=== PATIENT | male | born 1970 | race Caucasian/White ===

== ENCOUNTER 2019-08-04 09:22 | Inpatient (IN) ==
[2019-08-04] MEDS ORDERED: TYLENOL PO PRN (11:39)
[2019-08-04] MEDS ORDERED: ZOFRAN ODT PO PRN (11:39)
[2019-08-04] MEDS ORDERED: BENTYL PO PRN (11:39)
[2019-08-04] MEDS ORDERED: MAALOX PLUS LIQUID PO PRN (11:39)
[2019-08-04] MEDS ORDERED: SALINE LOCK IV FLUID XX ONE (11:39)
[2019-08-04] MEDS ORDERED: SEROQUEL PO PRN (11:39)
[2019-08-04] MEDS ORDERED: DESYREL PO PRN (11:39)
[2019-08-04] MEDS ORDERED: DULCOLAX PR PRN (11:39)
[2019-08-04] MEDS ORDERED: D5W 1,000 ML IV PRN (11:39)
[2019-08-04] MEDS ORDERED: ZOFRAN IV PRN (11:39)
[2019-08-04] MEDS ORDERED: PHENOBARBITAL IV PRN (11:39)
[2019-08-04] MEDS ORDERED: TUBERSOL ID ONE (11:39)
[2019-08-04] MEDS ORDERED: IMODIUM PO PRN (11:39)
[2019-08-04] MEDS ORDERED: ROBAXIN PO PRN (11:39)
[2019-08-04] MEDS ORDERED: SENOKOT PO PRN (11:39)
[2019-08-04 12:23] LABS: URINE SOURCE VOIDED
[2019-08-04] MEDS: NICODERM PATCH TD PRN (12:38)
[2019-08-04] MEDS: LIBRIUM PO SCH ×2 (12:38→18:55)
[2019-08-04 12:45] LABS: AMYLASE 54 U/L (20-200); LIPASE 27 U/L (13-60)
[2019-08-04 12:56] LABS: HEMATOCRIT 43.3 % (42.0-52.0); HEMOGLOBIN 15.3 g/dL (14.0-18.0); MCH 33.5 PG (27-31); MCHC 35.3 g/dL (33-37); MCV 94.7 FL (81-99); MPV 10.1 FL (7.4-10.4); RBC 4.57 XMIL (4.7-6.1); RDW 12.2 % (11.5-14.5); WBC 10.2 X1000 (4.8-10.8)
[2019-08-04 12:57] LABS: UR AMPHETAMINES QUAL NONE DETECTED (NONE DETECT); UR BARBITUATES QUAL NONE DETECTED (NONE DETECT); UR BENZODIAZEPIN QUAL PRESUMPTIVE POSITIVE (NONE DETECT); UR CANNABINOIDS QUAL NONE DETECTED (NONE DETECT); UR COCAINE QUAL NONE DETECTED (NONE DETECT); UR METHADONE QUAL NONE DETECTED (NONE DETECT); UR METHAMPHETAMINE QUAL NONE DETECTED (NONE DETECT); UR OPIATES QUAL NONE DETECTED (NONE DETECT); UR OXYCODONE QUAL PRESUMPTIVE POSITIVE (NONE DETECT); UR PCP QUAL NONE DETECTED (NONE DETECT); UR PROPOXYPHENE QUAL NONE DETECTED (NONE DETECT); UR TCA QUAL NONE DETECTED (NONE DETECT)
[2019-08-04] MEDS ORDERED: M.V.I.-12 10 ML, FOLIC ACID 1 MG, MAGNESIUM SULFATE 1 GM, THIAMINE 100 MG in NS 1,000 ML IV ONE (13:00)
[2019-08-04 13:07] LABS: BILIRUBIN URINE NEGATIVE (NEGATIVE); BLOOD URINE TRACE (NEGATIVE); CLARITY SL. CLOUDY (CLEAR); COLOR YELLOW; GLUCOSE URINE NEGATIVE (NEGATIVE); KETONE URINE TRACE mg/dL (NEGATIVE); LEUKOCYTES URINE TRACE (NEGATIVE); NITRITE URINE NEGATIVE (NEGATIVE); PROTEIN URINE TRACE mg/dL (NEGATIVE); UROBILINOGEN URINE 4 mg/dL
[2019-08-04 13:08] LABS: AGAP 15; ALBUMIN 4.8 g/dL (3.5-5.0); ALKALINE PHOSPHATASE 69 U/L (32-122); BUN 12 mg/dL (8-22); CALCIUM 10.1 mg/dL (8.8-10.2); CHLORIDE 92 mmol/L (98-107); COSMO 275; CREATININE 1.1 mg/dL (0.7-1.2); ESTIMATED GFR > 60; GLUCOSE 131 mg/dL (70-104); GOT 61 U/L (10-34); GPT 52 U/L (10-44); POTASSIUM 3.4 mmol/L (3.5-5.1); SODIUM 137 mmol/L (136-145); TCO2 30 mmol/L (25-35); TOTAL PROTEIN 7.7 g/dL (6.3-8.3)
[2019-08-04 13:13] LABS: URINE BACTERIA 1+ /HFP; URINE CRYSTAL CA OXALATE PRESENT /HPF; URINE EPITHELIAL CELLS <10 /HPF (<10); URINE RBC <10 /HPF (<10)
[2019-08-04 13:33] LABS: INR 0.91; PROTIME 12.7 Seconds (11.0-16.0)
[2019-08-04] MEDS: ATARAX PO PRN (20:13)
[2019-08-04] MEDS: MOTRIN PO PRN (20:13)
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
[2019-08-05] MEDS: LIBRIUM PO SCH ×5 (01:04→23:43)
[2019-08-05] MEDS: PROTONIX PO SCH (06:25)
[2019-08-05] MEDS: THERA M PLUS PO SCH (09:51)
[2019-08-05] MEDS: VITAMIN B-1 PO SCH (09:51)
[2019-08-05] MEDS: FOLIC ACID PO SCH (09:51)
[2019-08-05] MEDS: NICODERM PATCH TD PRN (17:22)
[2019-08-05] MEDS: MOTRIN PO PRN (20:06)
[2019-08-05] MEDS: ATARAX PO PRN (20:13)
--- NOTE | 2019-08-05 20:19 | PROGRESS NOTE ---
DATE: 08/05/2019 SUBJECTIVE: Patient states that he is very sleepy, tired. Denies any fevers or chills. States overall he is feeling better. PHYSICAL EXAMINATION: Vital Signs: Reviewed. He is awake, alert currently. Temperature 97.5 degrees, pulse 69, respiratory rate 18, BP 111/65. General: Patient is in no current respiratory distress. HEENT: Normocephalic. Neck: Supple. Cardiovascular: Regular rate. Chest: Clear, nonlabored. Abdomen: Soft, nondistended. Extremities: Moves all extremities. Neurologic: No changes. ASSESSMENT: 1. Nausea and vomiting. 2. Abdominal pain. 3. Myalgias. 4. Tremors. 5. Paresthesias. 6. Paroxysmal sweating. PLAN: We are going to continue patient in the hospital. We are going to rapidly decrease his Librium. Instead of 50 q.6 hours a day, we are going to switch to 25 q.6, and we will follow. Discussed with patient that should his withdrawal symptoms worsen, he needs to let us know, and we will increase. cc: León Rodriges MD
[2019-08-06] MEDS: PROTONIX PO SCH ×2 (05:40→06:06)
[2019-08-06] MEDS: LIBRIUM PO SCH ×2 (05:40→12:29)
[2019-08-06 08:39] VITALS: BP 127/90
[2019-08-06] MEDS: FOLIC ACID PO SCH (08:40)
[2019-08-06] MEDS: VITAMIN B-1 PO SCH (08:40)
[2019-08-06] MEDS: THERA M PLUS PO SCH (08:40)
[2019-08-06] MEDS ORDERED: REVIA PO ONE (08:45)
[2019-08-06] MEDS ORDERED: VIVITROL IM ONE (14:00)
== END 2019-08-06 14:30 | disposition home or self-care (01) | DRG 897 ==
LOC: P.DIRADM 09:22 → P.MEDSURG 09:53
PROVIDERS: ADMIT Family Medicine; ATTEND Family Medicine

== ENCOUNTER 2019-10-22 09:40 | Inpatient (IN) ==
[2019-10-22] MEDS ORDERED: SENOKOT PO PRN (13:11)
[2019-10-22] MEDS ORDERED: ROBAXIN PO PRN (13:11)
[2019-10-22] MEDS ORDERED: MOTRIN PO PRN (13:11)
[2019-10-22] MEDS ORDERED: ATARAX PO PRN (13:11)
[2019-10-22] MEDS ORDERED: SALINE LOCK IV FLUID XX ONE (13:11)
[2019-10-22] MEDS ORDERED: D5W 1,000 ML IV PRN (13:11)
[2019-10-22] MEDS ORDERED: DULCOLAX PR PRN (13:11)
[2019-10-22] MEDS ORDERED: PHENOBARBITAL IV PRN (13:11)
[2019-10-22] MEDS ORDERED: DESYREL PO PRN (13:11)
[2019-10-22] MEDS ORDERED: BENTYL PO PRN (13:11)
[2019-10-22] MEDS ORDERED: IMODIUM PO PRN (13:11)
[2019-10-22] MEDS ORDERED: MAALOX PLUS LIQUID PO PRN (13:11)
[2019-10-22] MEDS ORDERED: TUBERSOL ID ONE (13:11)
[2019-10-22] MEDS ORDERED: NICODERM PATCH TD PRN (13:11)
[2019-10-22] MEDS ORDERED: ZOFRAN IV PRN (13:11)
[2019-10-22 13:45] LABS: HEMATOCRIT 47.6 % (42.0-52.0); HEMOGLOBIN 16.2 g/dL (14.0-18.0); MCH 31.3 PG (27-31); MCV 91.9 FL (81-99); MPV 11.6 FL (7.4-10.4); RBC 5.18 XMIL (4.7-6.1); RDW 15.2 % (11.5-14.5); WBC 7.37 X1000 (4.8-10.8)
[2019-10-22 13:51] LABS: URINE SOURCE VOIDED
[2019-10-22] MEDS: LIBRIUM PO SCH ×3 (13:56→19:38)
[2019-10-22 13:57] LABS: BILIRUBIN URINE NEGATIVE (NEGATIVE); BLOOD URINE NEGATIVE (NEGATIVE); COLOR YELLOW; GLUCOSE URINE NEGATIVE (NEGATIVE); KETONE URINE NEGATIVE (NEGATIVE); LEUKOCYTES URINE NEGATIVE (NEGATIVE); NITRITE URINE NEGATIVE (NEGATIVE); PROTEIN URINE 50 mg/dL (NEGATIVE); SP GRAVITY URINE 1.008; TURBIDITY URINE CLEAR (CLEAR); UROBILINOGEN URINE NORMAL (NORMAL)
[2019-10-22] MEDS ORDERED: M.V.I.-12 10 ML, FOLIC ACID 1 MG, MAGNESIUM SULFATE 1 GM, THIAMINE 100 MG in NS 1,000 ML IV ONE (14:00)
[2019-10-22 14:04] LABS: AMYLASE 81 U/L (20-200); LIPASE 118 U/L (13-60)
[2019-10-22 14:08] LABS: AGAP 23; ALBUMIN 4.4 g/dL (3.5-5.0); ALKALINE PHOSPHATASE 109 U/L (32-122); BUN 7 mg/dL (8-22); CALCIUM 8.7 mg/dL (8.8-10.2); CHLORIDE 95 mmol/L (98-107); COSMO 277; CREATININE 0.8 mg/dL (0.7-1.2); ESTIMATED GFR > 60; GLUCOSE 99 mg/dL (70-104); GOT 274 U/L (10-34); GPT 117 U/L (10-44); POTASSIUM 3.1 mmol/L (3.5-5.1); SODIUM 140 mmol/L (136-145); TCO2 22 mmol/L (25-35); TOTAL PROTEIN 7.3 g/dL (6.3-8.3)
[2019-10-22 14:08] LABS: UR AMPHETAMINES QUAL NONE DETECTED (NONE DETECT); UR BARBITUATES QUAL NONE DETECTED (NONE DETECT); UR BENZODIAZEPIN QUAL PRESUMPTIVE POSITIVE (NONE DETECT); UR CANNABINOIDS QUAL NONE DETECTED (NONE DETECT); UR COCAINE QUAL NONE DETECTED (NONE DETECT); UR METHADONE QUAL NONE DETECTED (NONE DETECT); UR METHAMPHETAMINE QUAL NONE DETECTED (NONE DETECT); UR OPIATES QUAL NONE DETECTED (NONE DETECT); UR OXYCODONE QUAL NONE DETECTED (NONE DETECT); UR PCP QUAL NONE DETECTED (NONE DETECT); UR PROPOXYPHENE QUAL NONE DETECTED (NONE DETECT); UR TCA QUAL NONE DETECTED (NONE DETECT)
[2019-10-22 14:16] LABS: UR EPITHELIAL CELLS <10 /HPF (<10); URINE BACTERIA NEGATIVE /HPF; URINE CASTS NONE SEEN; URINE CRYSTALS NONE SEEN; URINE RBC <10 /HPF (<10); URINE SMALL ROUND CELLS NONE SEEN; URINE WBC <10 /HPF (<10); URINE YEAST NONE SEEN
[2019-10-22 14:31] LABS: INR 0.91; PROTIME 12.7 Seconds (11.0-16.0)
[2019-10-22] MEDS: ZOFRAN ODT PO PRN ×2 (17:01→22:58)
[2019-10-22] MEDS: SEROQUEL PO PRN (22:58)
[2019-10-23] MEDS: LIBRIUM PO SCH ×4 (01:01→18:53)
[2019-10-23] MEDS: PROTONIX PO SCH (06:38)
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
[2019-10-23] MEDS: VITAMIN B-1 PO SCH (10:16)
[2019-10-23] MEDS: FOLIC ACID PO SCH (10:16)
[2019-10-23] MEDS: THERA M PLUS PO SCH (10:16)
--- NOTE | 2019-10-23 21:37 | PROGRESS NOTE ---
DATE: 10/23/2019 SUBJECTIVE: Patient notes that he is feeling okay. States he is feeling better. He is having less muscle aches, less myalgias. No tremors. Sweating is improved. PHYSICAL EXAMINATION: Vital Signs: Temperature 98.2, pulse 91, respiratory rate 18, BP 164/75. General: Patient is awake, alert, very pleasant. He is in no respiratory distress. HEENT: Normocephalic. Neck: Supple. Cardiovascular: Regular rate. Chest: Clear. Abdomen: Soft, nondistended. Extremities: Moves all extremities. Neurologic: No changes. ASSESSMENT: 1. Acute hepatitis, likely alcohol induced. 2. Nausea and vomiting. 3. Abdominal pain. 4. Tremors. 5. Myalgias. 6. Paresthesias. 7. Alcohol abuse withdrawal and stabilization. 8. Chronic anxiety. 9. Hypertension. 10. Chronic reflux. PLAN: We will continue patient in the hospital. Continue to follow. Continue counseling. Further orders as needed. cc: León Rodriges MD
[2019-10-23] MEDS: SEROQUEL PO PRN (21:54)
[2019-10-24] MEDS: LIBRIUM PO SCH ×4 (03:25→18:38)
[2019-10-24] MEDS: PROTONIX PO SCH (06:16)
[2019-10-24] MEDS: VITAMIN B-1 PO SCH (08:53)
[2019-10-24] MEDS: FOLIC ACID PO SCH (08:53)
[2019-10-24] MEDS: THERA M PLUS PO SCH (08:53)
[2019-10-24] MEDS: TYLENOL PO PRN (13:53)
[2019-10-25] MEDS: LIBRIUM PO SCH ×4 (03:29→18:33)
[2019-10-25] MEDS: PROTONIX PO SCH (06:08)
[2019-10-25] MEDS: COZAAR PO SCH (10:19)
[2019-10-25] MEDS: TYLENOL PO PRN (10:19)
[2019-10-25] MEDS: THERA M PLUS PO SCH (10:20)
[2019-10-25] MEDS: CELEXA PO SCH (10:20)
[2019-10-25] MEDS: VITAMIN B-1 PO SCH (10:21)
[2019-10-25] MEDS: FOLIC ACID PO SCH (10:21)
--- NOTE | 2019-10-25 15:46 | PROGRESS NOTE ---
DATE: 10/25/2019 SUBJECTIVE: Patient notes he is feeling better. Less tremors, less myalgias. Still quite sleepy and tired during the day. Denies any fevers or chills. PHYSICAL EXAMINATION: Vital Signs: Reviewed. Temp 97.6 degrees, pulse 85, respiratory rate 18, BP 129/90. General: Patient is awake, alert, currently in no respiratory distress. HEENT: Normocephalic. Neck: Supple. Cardiovascular: Regular rate. Chest: Clear. Abdomen: Soft. Extremities: Moves all extremities. No focal changes. ASSESSMENT: 1. Nausea, vomiting. 2. Abdominal pain. 3. Myalgias. 4. Paresthesias. 5. Paroxysmal sweating. 6. Alcohol abuse withdrawal and stabilization. 7. Acute hepatitis, likely secondary to alcohol. PLAN: We will continue patient in the hospital. Recheck liver function. Continue to wean. Further orders as needed. Continue counseling. cc: León Rodriges MD
[2019-10-25] MEDS ORDERED: LIBRIUM PO SCH (18:00)
--- NOTE | 2019-10-25 19:25 | PROGRESS NOTE ---
DATE: 10/25/2019 SUBJECTIVE: Patient notes that he is feeling better. Still sleepy. Denies any fevers or chills. PHYSICAL EXAMINATION: Vital Signs: Reviewed. Temperature 97.8, pulse 82, respiratory rate 18, BP 123/96. General: He is awake, alert. He is in no distress. The patient is pleasant. He is in no respiratory distress. HEENT: Normocephalic. Neck: Supple. Cardiovascular: Regular rate. Chest: Clear, nonlabored. Abdomen: Soft, nondistended, nontender. Extremities: Moves all extremities. Neurologic: No focal changes. Skin: Warm and dry. No rashes. ASSESSMENT: 1. Nausea and vomiting. 2. Abdominal pain. 3. Myalgias. 4. Paresthesias. 5. Paroxysmal sweating. 6. Alcohol abuse withdrawal and stabilization. 7. Chronic anxiety/depression. 8. Hypertension. PLAN: We are going to continue patient in the hospital. Continue counseling. I again discussed with him the use of medication-assisted therapy, i.e. Vivitrol versus naltrexone. He declines Vivitrol because he states that it did not help, although oddly enough, he did not drink for the month he was on Vivitrol, and started drinking after Vivitrol wore off. Discussed with him the option of naltrexone. He did agree that he may consider possibly trying naltrexone. We will continue to wean his Librium. Hopefully home over the next 1 or 2 days; depends on how he tolerates. cc: León Rodriges MD
[2019-10-26] MEDS: PROTONIX PO SCH (06:38)
[2019-10-26] MEDS ORDERED: NORVASC PO SCH (09:00)
[2019-10-26] MEDS ORDERED: REVIA PO SCH (09:00)
[2019-10-26] MEDS ORDERED: ALDACTONE PO SCH (09:00)
[2019-10-26] MEDS ORDERED: HYGROTON PO SCH (09:00)
[2019-10-26] MEDS: LIBRIUM PO SCH (09:58)
[2019-10-26] MEDS: CELEXA PO SCH (09:58)
[2019-10-26] MEDS: TYLENOL PO PRN (09:58)
[2019-10-26] MEDS: VITAMIN B-1 PO SCH (10:00)
[2019-10-26] MEDS: COZAAR PO SCH (10:00)
[2019-10-26] MEDS: FOLIC ACID PO SCH (10:00)
[2019-10-26] MEDS: THERA M PLUS PO SCH (10:00)
[2019-10-26 12:06] VITALS: BP 150/90
--- NOTE | 2019-10-26 16:08 | DISCHARGE SUMMARY ---
ADMISSION DATE: 10/22/2019 DISCHARGE DATE: 10/26/2019 DISCHARGE DIAGNOSES: 1. Nausea, vomiting. 2. Abdominal pain. 3. Myalgias, paresthesias. 4. Paroxysmal sweating. 5. Hypertension. 6. Alcohol abuse, withdrawal, and stabilization. 7. Chronic depression and anxiety. CONSULTATIONS: None. PROCEDURES: None. BRIEF HOSPITAL COURSE: Patient is a 49-year-old male who presented to the hospital with nausea, vomiting, abdominal pain, tremors, and myalgias. He was placed on high-dose Librium taper. Counseling was performed each day by myself. The patient continued to improve. As we weaned down his Librium, as expected, his blood pressures did start drifting back up. We eventually restarted him on all his home blood pressure medications. On discharge, he is awake, alert. He is in no distress. DISPOSITION: Again discussed with patient the use of naltrexone or Vivitrol. He is refusing Vivitrol, stating that it did not help, although as noted previously he did not drink for the entire month that he was on Vivitrol and started drinking only after the shot wore off. Regardless, he is refusing Vivitrol. We are going to send him a prescription for naltrexone. He has weaned totally off of Librium. He will continue his home blood pressure medications. He will follow up outpatient with treatment facility of choice. Discussed with patient he needs outpatient life counseling as well as drug counseling. cc: León Rodriges MD
== END 2019-10-26 12:38 | disposition home or self-care (01) | DRG 392 ==
LOC: P.DIRADM 10:26 → P.MEDSURG 11:10
PROVIDERS: ADMIT Family Medicine; ATTEND Family Medicine